=== PATIENT | female | born 1990 | race Caucasian/White ===

== ENCOUNTER 2016-08-01 06:44 | Day surgery (SDC) | payer OTHER ==
[2016-08-01] VITALS (9 sets, daily range): BP systolic 106–119; BP diastolic 49–68; PULSE 74–101; RESP 15–20; O2SAT 96–100
[~2016-08-01] VITALS: Ht 162.6 cm; Wt 52.9 kg
[2016-08-01] MEDS: Lactated Ringer's 1,000 ML IV SCH ×2 (05:19→08:54)
[~2016-08-01 06:44] MED LIST: MIRENA IUD INTRAUTERI; NORG1TAB78 PO
[2016-08-01] MEDS ORDERED: MetoCLOpramide 5 mg/mL 2 mL Inj ONE (06:45)
[2016-08-01] MEDS ORDERED: Glycopyrrolate 0.2 mg/mL 5 mL Inj ONE (06:45)
[2016-08-01] MEDS ORDERED: Neostigmine 1 mg/mL 5 mL Inj ONE (06:45)
[2016-08-01] MEDS ORDERED: Propofol 10,000 mCg/mL 20 mL Inj ONE (06:45)
[2016-08-01] MEDS ORDERED: Rocuronium 10 mg/mL 5 mL Inj ONE (06:45)
[2016-08-01] MEDS ORDERED: fentaNYL-PF 50 mCg/mL 2 mL Inj ONE (06:45)
[2016-08-01] MEDS ORDERED: Ondansetron 2 mg/mL 2 mL Inj ONE (06:45)
[2016-08-01] MEDS ORDERED: Dexamethasone 4 mg/mL Inj ONE (06:45)
[2016-08-01] MEDS ORDERED: CeFAZolin Inj 2 gm / 50mL D5W IV ONE (06:50)
[2016-08-01] MEDS ORDERED: HYDROmorphone 1 mg/mL Inj IVPUSH PRN (08:45)
[2016-08-01] MEDS ORDERED: Phenylephrine 10,000 mCg/mL Inj IVPUSH PRN (08:45)
[2016-08-01] MEDS ORDERED: Lactated Ringer's 1,000 ML IV SCH (08:45)
[2016-08-01] MEDS ORDERED: EPHEDrine Sulfate 50 mg/mL Inj IVPUSH PRN (08:45)
[2016-08-01] MEDS ORDERED: Labetalol 5 mg/mL 4 mL Inj IV PRN (08:45)
[2016-08-01] MEDS ORDERED: Atropine 0.4 mg/mL Inj IVPUSH PRN (08:45)
[2016-08-01] MEDS ORDERED: Lactated Ringer's 500 ML IV PRN (08:45)
[2016-08-01] MEDS ORDERED: fentaNYL-PF 50 mCg/mL 2 mL Inj IVPUSH PRN (08:45)
[2016-08-01] MEDS ORDERED: hydrALAZINE 20 mg/mL Inj IVPUSH PRN (08:45)
--- NOTE | 2016-08-01 08:45 | PCM.HPANE ---
Patient Data Surgeon Admitting Provider: Attending Provider:Akash Huerta MD Primary Care Physician:Snow Edmonds Other Provider:Rodrigue Malone Anesthesia Reason for Visit Right Ovarian Cyst Ht/WT & BMI Height (Feet): 5 Height (Inches): 4.00 Weight (Kilograms): 52.9 Body Mass Index 19.00 Allergies Coded Allergies: Cashew (Verified Adverse Reaction, Severe, itching, 07/31/16) peanut (Verified Adverse Reaction, Severe, itchy, 07/31/16) pistachio nut (Verified Adverse Reaction, Severe, itching, 07/31/16) Past Anesthesia History Anesthesia History: Denies:: Fam Anesthesia Reaction, Fam Malignant Hypertherm Diabetes History Hx Diabetes?: No MRSA MRSA: No Medications Hypertension Medication: No Home Meds Incl Beta Annabella: No Reported Medications Norgestimate-Ethinyl Estradiol (Treasure-Linyah)1 Each Tablet1 Each PO DAILY 0.25/35 07/31/16 [Mirena Iud] No Conflict Check Intrauteri 20MCG/24H 07/31/16 Discontinued Scripts Norgestimate-Ethinyl Estradiol (Sprintec)1 Each Tablet1 Each PO DAILY #2 PACKET take daily for 6 weeks. skip the last week of pills in each pack Prov:Erasto Cortes DO 04/13/16 Tramadol 50 Mg [id number] Mg PO Q4H PRN For Pain #14 TABLET Ref 0 Prov:Erasto Cortes DO 04/13/16 History History of ENT Problems?: No Hx of Heart Problems?: No Cardiovascular History: Denies:: Congestive Heart Failure Heart Murmur Hypertension Hx of Respiratory Problem?: Yes Respiratory History: Positive for:: Asthma (mild asthma, occasional inhaler use) Denies:: Tuberculosis Use of C-PAP Machine Hx Neurologic Problems?: Yes Hx of GI Problems?: No Hx of Problems?: No Female Hx: Denies:: Currently Problems with Breasts? Skin History: Denies:: History Skin Disorders? Pressure Ulcers Hx Musculoskeletal Problems?: No Hx of Psycho/Social Problems?: No Hx Surgeries?: No Hx Any Other Health Problems?: No Other History: Denies:: Cancer Endocrine Disease Hospitalization Thyroid Disease History Blood Transfusions: Denies:: Blood Transfusions Hx Diabetes: No Hx Alcohol Use: NoHx Substance Use: No Smoking Status: Never Smoker Have You Smoked inLast 12 mo: No Stop/Bang S-Snoring: Do You Snore Loudly: No T-Tired: feel tired, fatigued: Yes O-Obsered: Observed not breath: No P-Blood Pressure: treated: No B- Body Mass Index > 35 kg/m2: No A- Age over 50: No N- Neck Large Circumference: No G- Gender Male: No ABEL Total Score: 1 ABEL Risk Assessment: Low Risk, <3 Yes Risk Assessment Category Category 1A: Patient has history of documented sleep apnea, and HAS NOT received any narcotic, sedative or anesthesia administration during this stay. Category 1B: Patient has history of documented sleep apnea, and HAS received any narcotic , sedative or anesthesia administration during this stay Category 2: Patient has SUSPECTED Obstructive Sleep Apnea, and HAS received any narcotic , sedative or anesthesia administration during this stay. Category 3: Patient has SUSPECTED Obstructive Sleep Apnea and HAS NOT received narcotic, sedative or anesthesia administration during this stay. Category 4: Outpatient in Procedural Areas with known sleep apnea or who screen positive for High Risk via the STOP/BANG questionnaire. Exam Exam Vital Signs Vital Signs Date Time Temp Pulse Resp B/P Pulse Ox O2 Delivery O2 Flow Rate FiO2 08/01/16 07:15 36.5 85 16 115/68 100 Room Air General Appearance: Alert, Oriented X3, Cooperative, No Acute Distress HEENT/AIRWAY: MP 1 Lungs: Clear to Auscultation, Normal Air Movement Heart: Exam Unremarkable, Regular Rate/Rhythm, No Murmurs/Rubs/Gallops Meds/Labs/Diagnostics Admission Meds Current Medications Lactated Ringer's (Lr) 1,000 ml @ 120 mls/hr Q8H20M IV Last administered on t 05:19; Start 08/01/16 at 05:00; Stop 08/01/16 at 13:19 Plan Impression Patient chart reviewed, patient interviewed and anesthestic plan with risks, benefits, and alternatives discussed, and informed consent obtained. NPO Status: 07/31 at 1999 ASA Physical Status: ASA2 Mod Systemic Disease Anesthetic Plan: GA Bene/Risks/Altern/Consents: Yes HP Complete Prior to Induction: Yes Joao Kinsey MD Aug 01, 2016 07:46
[2016-08-01] MEDS ORDERED: Bupivacaine-MPF 0.5% W/EPI 30 mL Inj INFILTRATE ONE (09:25)
[2016-08-01] MEDS ORDERED: CeFAZolin Inj 2 GM in IV Premix 1 EACH IV SCH (10:00)
[2016-08-01] MEDS ORDERED: CeFAZolin Inj 2 GM in IV Premix 1 EACH IV ONE (10:10)
[2016-08-01] MEDS ORDERED: MetoCLOpramide 5 mg/mL 2 mL Inj IVPUSH PRN (11:30)
[2016-08-01] MEDS ORDERED: oxyCODONE-Acetamin 5-325 mg Tablet PO PRN (11:30)
[2016-08-01] MEDS ORDERED: Ondansetron 2 mg/mL 2 mL Inj IVPUSH PRN (11:30)
--- NOTE | 2016-08-01 11:30 | PCM.DIMED ---
Discharge Instructions Date of Service Aug 01, 2016 Dates of Hospitalization Diet No restrictions Activity No restrictions Call your provider Fever or Chills, Shortness of breath, Bleeding, Chest pain, Vomitting, Excessive diarrhea Patient Instructions Follow-up with PCP in: 2 weeks Akash Huerta MD Aug 01, 2016 11:30
--- NOTE | 2016-08-01 11:36 | PCM.ANEP1 ---
Post Anesthesia Phase 1 PACU Phase 1 Assessment Vital Signs Vital Signs Date Time Temp Pulse Resp B/P Pulse Ox O2 Delivery O2 Flow Rate FiO2 08/01/16 11:30 101 20 115/51 100 Nasal Cannula 2 08/01/16 11:25 88 20 106/50 100 Nasal Cannula 2 08/01/16 11:20 86 17 111/49 100 Nasal Cannula 2 08/01/16 11:15 37.0 74 18 114/57 100 Nasal Cannula 2 08/01/16 07:15 36.5 85 16 115/68 100 Room Air Anesthetic Administered: GA Level of Alertness: Sleepy, easy to arouse DAMIAN's with Equal Strength: Yes Pain: No Nausea or Vomiting: No Oxygen Delivery: Nasal Cannula Lungs: Clear to Auscultation, Normal Air Movement Joao Kinsey MD Aug 01, 2016 11:35
[2016-08-01] MEDS: Ondansetron 2 mg/mL 2 mL Inj IVPUSH PRN ×2 (12:11→12:12)
[2016-08-01] MEDS: MetoCLOpramide 5 mg/mL 2 mL Inj IVPUSH PRN ×2 (12:11→12:12)
[2016-08-01] MEDS ORDERED: Lactated Ringer's 1,000 ML IV ONE ×2 (12:12)
--- NOTE | 2016-08-01 12:24 | PCM.ANEP2 ---
Post Anesthesia Evaluation ASA/CMS Post Anesthesia VS in Patient's Normal Range?: Yes Resp Stable; Airway Patent?: Yes CV Function & Hydration Stable: Yes Mental Status Recovered?: Yes Pain control Satisfactory?: Yes N/V Control Satisfactory?: Yes Joao Kinsey MD Aug 01, 2016 12:24
--- NOTE | 2016-08-01 13:45 | OP ---
[address] [address] OPERATIVE REPORT PATIENT: GERSON RODRIGUEZ : 1990 MR#: [id number] ADMIT: 08/01/2016 JOB ID: [id number] DATE OF SURGERY: 08/01/2016 PROCEDURE: Laparoscopic left ovarian cystectomy. PREOPERATIVE DIAGNOSIS(ES): Right ovarian complex cyst. POSTOPERATIVE DIAGNOSIS(ES): Left ovarian complex cyst and adhesions. SURGEON: Akash Huerta MD. ANESTHESIA: General, Joao Kinsey MD ESTIMATED BLOOD LOSS: 20 mL. ESTIMATED URINE OUTPUT: 50 mL. FLUIDS: 700 mL of lactated Ringer's. COMPLICATIONS: None. FINDINGS: Complex ovarian cyst originating from left ovary occupying the posterior cul-de-sac and right ovarian fossa with adhesions to the uterus and both adnexa. Chocolate-colored fluid was irrigated from the cyst, clinical impression endometrioma pending pathology. PROCEDURE: The patient was brought to the operating room, where she underwent general anesthesia without difficulty. The patient was placed in dorsal lithotomy position using Guanaco stirrups. She was prepped and draped in the usual surgical fashion. Time-out was performed verifying correct patient, correct procedure. Hulka uterine manipulator was placed into the uterus. The patient had an IUD in, it was left untouched. Attention was then directed to the patient's abdomen where local Marcaine was injected in the paraumbilical area. Veress needle was introduced and CO2 gas was insufflated until appropriate pneumoperitoneum was achieved. The Veress needle was removed. A 5 mm vertical skin incision was made supraumbilically and a 5 mm trocar was placed. Using 30 degree scope, the pelvis was reviewed with the findings mentioned above. The rest of the abdomen was unremarkable. Two additional skin incisions were made in the right and left lower quadrant 5 cm superior and medially from the anterior-superior iliac spine on the right and left side. The 5 mm trocars were placed through the incision. Using DeBakey grasper and Thunderbeat instrument, lysis of adhesions was provided the cyst from the adherent structures. The patient's right tube and right ovary were not involved with the cyst, it was just adherent to them. Most of the cyst was displacing to the patient's right side. That gave initial impression of right ovarian location. The cavity with the cyst was entered and the intracystic fluid was irrigated with the irrigation device. The size of the cyst was about 10 cm. Further lysis of adhesions was done through posterior cul-de-sac and posterior part of the uterus. The cyst was originating from the left ovary and left adnexa, it was possible to separate the left fallopian tube from the cyst without damaging the tube. The cyst was from the left ovary with a Thunderbeat instrument. The left lower quadrant abdominal trocar incision was extended to 11 mm and 11 mm trocar was placed through that.Endocatch bag was introduced through the trocar. The cyst was placed in the bag and removed from the abdomen. The pelvis was irrigated with warm normal saline. A series of images were obtained. Both tubes remained intact. The CO2 gas was desufflated from the abdomen. All the instruments and trocars were removed. The left lower quadrant incision was closed. The fascia was closed with 0-Vicryl. The skin was reapproximated with 4-0 Monocryl. Dermabond glue was applied. Paraumbilical and right lower quadrant 5 mm incisions were closed with 4-0 Monocryl. Dermabond glue was applied as well. The patient was repositioned back into the supine position. Hudson catheter was removed. Hulka uterine manipulator was removed as well. Good hemostasis was reassured. She tolerated the procedure well and was transferred to the recovery room in a stable condition. BEL
--- NOTE | 2016-08-04 16:01 | PATH ---
SURGICAL PATHOLOGY Attending Physician:Akash Huerta MD CASE STATUS: Signed Out PATIENT NAME: GERSON RODRIGUEZ PID: [id number] : 1990 DATE COLLECTED:08/01/2016 21:01 SPECIMEN: Ovary, Cyst, Non-Neoplastic CLINICAL HISTORY: LEFT OVARIAN COMPLEX CYST 1). LEFT OVARIAN CYST FINAL DIAGNOSIS: Ovarian Cyst, Left, Biopsies: Fragments of hemorrhagic ovarian cyst with features consistent with endometriosis. No evidence of neoplasm. ICD10: N80.1 GROSS DESCRIPTION: The specimen is received in formalin, labeled with the patient's name, sublabeled as left ovarian cyst and consists of a multiple pieces of gil-de la cruz smooth shiny rubbery membranous tissue (12.5 x 9.5 x 1.3 cm in aggregate). No excrescences are identified. No normal ovarian parenchyma is identified. 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 08/02/16 ICD-9 CODES: CPT CODES: 1: 73071 Electronically Signed Out Zaria Weinstein MD [facility] Pathology [facility] [address], [place] [address] Technical component performed at [facility], [facility] [address], [place], [address]
== END 2016-08-01 23:59 | disposition home or self-care (01) ==
LOC: SAS 06:44
PROVIDERS: ATTEND Legal Medicine
DX: N80.1 Endometriosis of ovary (principal); N83.291 Other ovarian cyst, right side; R10.2 Pelvic and perineal pain; J45.909 Unspecified asthma, uncomplicated
CPT/HCPCS: 58662; J1100; J2250; J2405; J2710; J2765; J3010; J7120